=== PATIENT | female | born 1945 | race American Indian/Alaskan Native ===

== ENCOUNTER 2019-06-29 08:42 | Outpatient (CLI) | payer MEDICARE, OTHER ==
--- NOTE | 2019-06-29 10:24 | XRay Report ---
CHEST 2 VIEWS INDICATION: CHEST PAIN. COMPARISON: None FINDINGS: Support devices: None. Heart: Within normal limits. Lungs/pleura: Densely calcified granuloma in the right upper lobe. Otherwise clear lungs. No pneumot horax. Additional findings: None. IMPRESSION: 1. No acute findings. Signer Name: Shan Woodruff MD Signed: 06/29/2019 10:19 AM Workstation Name: [id number]
--- NOTE | 2019-06-29 11:25 | Cat Scan Report ---
CT CHEST, ABDOMEN, AND PELVIS WITHOUT IV CONTRAST INDICATION / CLINICAL INFORMATION: WT LOSS. TECHNIQUE: Axial CT images were obtained through the chest, abdomen, and pelvis. No contrast is administered. Al l CT scans at this location are performed using CT dose reduction for ALARA by means of automated exp osure control. COMPARISON: None available. FINDINGS: HEART: Atherosclerotic calcifications are noted in the coronary arteries. THORACIC AORTA: No significant abnormality. MEDIASTINUM and ANNE-MARIE: No significant abnormality. LUNGS: There is scarring noted in the lung bases. There is a calcified granuloma in the right upper l obe. PLEURA: No significant pleural effusion. No pneumothorax. ADDITIONAL CHEST FINDINGS: None. LIVER: There is an 8 cm cyst in the left lobe of the liver. There is a low-density lesion in the infe rior right lobe which is obscured by motion artifact but likely represent cysts as well. There is eit her a cyst or fatty infiltration adjacent to the falciform ligament. GALLBLADDER: No significant abnormality. BILE DUCTS: No significant abnormality. PANCREAS: No significant abnormality. SPLEEN: No significant abnormality. ADRENALS: No significant abnormality. RIGHT KIDNEY and URETER: No significant abnormality. LEFT KIDNEY and URETER: No significant abnormality. STOMACH and SMALL BOWEL: No significant abnormality. COLON: No significant abnormality. APPENDIX: No significant abnormality. PERITONEUM: No free fluid. No free air. No fluid collection. LYMPH NODES: No significant adenopathy. AORTA and ARTERIES: Atherosclerotic calcifications are noted in the aorta and coronary arteries. Athe rosclerotic calcifications are noted in the iliac arteries IVC and VEINS: No significant abnormality. URINARY BLADDER: No significant abnormality. REPRODUCTIVE ORGANS: No significant abnormality. Calcified fibroid is noted in the uterus ADDITIONAL FINDINGS: There are multiple phleboliths in the pelvis. SKELETAL SYSTEM: No significant abnormality. IMPRESSION: 1. No acute abnormality is seen in the chest abdomen or pelvis. There is a large cyst in the left lob e of the liver. There is a small probable cyst in the right lobe. There is atherosclerotic disease. No mass lesions are seen. No adenopathy is seen. Signer Name: Raman Andino MD Signed: 06/29/2019 11:21 AM Workstation Name: [id number]
--- NOTE | 2019-07-02 09:59 | Mammography Report ---
DIGITAL SCREENING MAMMOGRAM WITH CAD, 06/29/2019 INDICATION: Routine screening mammography. TECHNIQUE: Digital bilateral 2D mammography was obtained in the craniocaudal and mediolateral obliq ue projections. This examination was interpreted with the benefit of Computer-Aided Detection analysi s. COMPARISON: 05/30/2015 FINDINGS: Breast Density: The breasts are heterogeneously dense, which may obscure small masses. There is no evidence of dominant mass, suspicious calcifications or architectural distortion in eithe r breast. IMPRESSION: Follow up recommendation: Routine yearly BI-RADS Category 1: Negative. A "normal" or negative report should not discourage follow up or biopsy of a clinically significant f inding. A written summary of these findings will be mailed to the patient. The patient will be entered into a mammography reporting system which will generate a reminder letter for the patient's next appointmen t at the appropriate interval. The [employer] recommends yearly mammograms starting at age 40 and continuing as l olivier as a woman is in good health. Breast MRI is recommended for women with an approximate 20-25% or greater lifetime risk of breast cancer, including women with a strong family history of breast or ova kevin cancer or who have been treated for Hodgkin's disease. Signer Name: Ulises Villalobos MD Signed: 07/02/2019 9:54 AM Workstation Name: [id number]
--- NOTE | 2019-07-02 10:08 | Mammography Report ---
BONE DEXA CLINICAL: Postmenopausal. COMPARISON: 04/18/2014 TECHNIQUE: 3 site bone DEXA performed on an Hologic scanner. FINDINGS: The average BMD of the lumbar spine L1-L4 is 1.130g/cm squared with a T score of +0.8 and a Z score o f +2.2. This compares to 0.998g/cm squared on the last exam and represents a +13.2 % change from the [previous baseline]. The average BMD of the left hip is 0.809 g/cm squared with a T score of -1.1and a Z score of -0.3. Th is compares to 0.802 g/cm squared on the last exam and represents a +0.9 % change from the [previous baseline]. The left femoral neck BMD is 0.555 g/cm squared with a T score of -2.7 and a Z score of -1.3. IMPRESSION: 1. WHO classification: Normal with average fracture risk based on spine measurements. 2. WHO classification Osteoporosis with high fracture risk based on left femoral neck measurements. 3. A significant increase in spine BMD which may be related to endplate sclerosis at L4-5. 4. Minimal change in total left hip BMD and left femoral neck BMD compared to the last exam. RECOMMENDATION: Clinical correlation and routine screening. Definitions: BMD equal bone mineral density T score = BMD related to peak bone mass of young adult (Lupe expressed an standard deviation) Z score = age-matched BMD expressed in SD World health organization (WHO) diagnostic criteria Normal T score greater than equal to 1 standard deviation Osteopenia T score between -1 and -2.4 standard deviation Osteoporosis T score -2.5 standard deviation or below. Note: BMD is not the only risk factor for fracture; also consider factors such as the patient's age, risk of falling, previous osteoporotic fracture, family history of osteoporotic fractures, current sm oker and low body weight. Z scores are not calculated if greater than 80 years of age. Signer Name: Ulises Villalobos MD Signed: 07/02/2019 10:03 AM Workstation Name: [id number]
== END 2019-06-29 08:43 | disposition home or self-care (01) ==
LOC: MAMMO 08:42
PROVIDERS: ATTEND Family Medicine
DX: Z12.31 Encounter for screening mammogram for malignant neoplasm of breast (principal); M81.0 Age-related osteoporosis without current pathological fracture; K76.89 Other specified diseases of liver; I87.8 Other specified disorders of veins; I25.10 Atherosclerotic heart disease of native coronary artery without angina pectoris; R07.9 Chest pain, unspecified; Z78.0 Asymptomatic menopausal state
CPT/HCPCS: 71046; 71250; 74176; 77067; 77080